=== PATIENT | male | born 1945 | race African-American/Black ===

== ENCOUNTER 2016-11-13 19:04 | Inpatient (IN) | payer OTHER, MEDICARE ==
[~2016-11-13] VITALS: Ht 185.4 cm; Wt 78.0 kg
[2016-11-13 20:18] LABS: Basophils # (auto) 0 uL; Basophils % (auto) 0.2 % (0.0-2.0); CONDITION Y; Eosinophils # (auto) 0.2 uL; Hematocrit 44.8 % (41.0-53.0); Hemoglobin 14.8 g/dL (13.5-17.5); Lymphocytes # (auto) 1.2 uL; Lymphocytes % (auto) 10.5 % (10.0-50.0); Mean Corpuscular Hemoglobin 29.2 pg (28.0-32.0); Mean Corpuscular Volume 88.2 fL (80.0-100.0); Mean Platelet Volume 8.5 fL (7.4-10.4); Monocytes # (auto) 0.8 uL; Monocytes % (auto) 7.2 % (0.0-12.0); Neutrophils # (auto) 9.2 uL; Neutrophils % (auto) 80.1 % (37.0-80.0); Platelet Count (auto) 224 10^3/uL (140-450); Red Cell Distribution Width 15.6 % (11.6-16.0); White Blood Cell 11.4 10^3/uL (4.4-10.8)
[2016-11-13 20:37] LABS: Albumin 3.3 g/dL (3.4-5.0); BUN/Creatinine Ratio 8.3; Bilirubin, Total 0.8 mg/dL (0.2-1.0); Calcium 8.8 mg/dL (8.5-10.1); INR 0.98 (0.9-1.15); Partial Thromboplastin Time 30.3 sec (22.64-33.71); Potassium 3.7 mmol/L (3.5-5.1); Prothrombin Time 10.7 sec (9.37-12.3); Total Protein 8.1 g/dL (6.4-8.2)
[2016-11-13] MEDS ORDERED: ENOXAPARIN SOD 100 MG/1 ML SYRINGE SC ONE (21:45)
[2016-11-13] MEDS ORDERED: VANCOMYCIN 1GM/250ML D5W 250 ML IV ONE (22:30)
[2016-11-13] MEDS ORDERED: VANCOMYCIN PER PHARMACY 0 MG IV SCH (23:00)
[2016-11-13] MEDS: SODIUM CHLORIDE 0.9% 1,000 ML IV SCH (23:22)
[2016-11-14] VITALS (8 sets, daily range): BP systolic 114–145; BP diastolic 53–78
[2016-11-14] MEDS: PIPERACILLIN-TAZOB 3.375GM 100 ML IV SCH ×5 (00:49→23:52)
[2016-11-14] MEDS: TEMAZEPAM 15 MG CAP PO PRN ×2 (01:02→22:30)
[2016-11-14] MEDS ORDERED: AMLO5TAB2 PO (01:54)
[2016-11-14] MEDS ORDERED: CARV12.544 PO (01:54)
[2016-11-14] MEDS ORDERED: CALCTAB62 OR (01:56)
[2016-11-14] MEDS ORDERED: [UNRECOGNIZED DRUG - CODE] PO (01:56)
[2016-11-14] MEDS ORDERED: ASPI81CH4 PO (01:56)
[2016-11-14 06:26] LABS: Basophils # (auto) 0 uL; Basophils % (auto) 0.5 % (0.0-2.0); CONDITION Y; Eosinophils # (auto) 0.2 uL; Eosinophils % (auto) 2.4 % (0.0-7.0); Hematocrit 39.7 % (41.0-53.0); Lymphocytes # (auto) 1.5 uL; Lymphocytes % (auto) 15.7 % (10.0-50.0); Mean Corpuscular Hemoglobin 29.3 pg (28.0-32.0); Mean Corpuscular Hgb Conc. 32.8 g/dL (32.0-36.0); Mean Corpuscular Volume 89.4 fL (80.0-100.0); Monocytes # (auto) 1.2 uL; Monocytes % (auto) 12.3 % (0.0-12.0); Neutrophils # (auto) 6.5 uL; Neutrophils % (auto) 69.1 % (37.0-80.0); Platelet Count (auto) 235 10^3/uL (140-450); Red Cell Distribution Width 15.2 % (11.6-16.0); White Blood Cell 9.5 10^3/uL (4.4-10.8)
[2016-11-14 06:35] LABS: Albumin 2.6 g/dL (3.4-5.0); Calcium 7.4 mg/dL (8.5-10.1); Potassium 3.5 mmol/L (3.5-5.1)
[2016-11-14 06:36] LABS: Bilirubin, Total 0.9 mg/dL (0.2-1.0); Total Protein 6.8 g/dL (6.4-8.2)
[2016-11-14] MEDS: SODIUM CHLORIDE 0.9% 1,000 ML IV SCH ×3 (06:59→22:59)
[2016-11-14] MEDS: CARVEDILOL 12.5 MG TAB PO SCH ×2 (09:08→22:32)
[2016-11-14] MEDS: PANTOPRAZOLE SODIUM 40 MG/10 ML VIAL IV SCH (09:08)
[2016-11-14] MEDS: ENOXAPARIN SOD 80 MG/0.8ML SYRINGE SC SCH ×2 (09:08→22:31)
[2016-11-14] MEDS: methylPREDNISolone SOD SUCC 125 MG/2 ML VL IV SCH ×2 (09:08→22:31)
[2016-11-14] MEDS: amLODIPine BESYLATE 5 MG TAB PO SCH (09:09)
[2016-11-14] MEDS: CHOLECALCIFEROL (VITD3) 1,000 UNIT TAB PO SCH (09:09)
[2016-11-14] MEDS: MORPHINE SULFATE 4 MG/ML SYRG IV PRN (09:10)
[2016-11-14] MEDS: VANCOMYCIN 1GM/250ML D5W 250 ML IV SCH ×2 (10:30→22:32)
[2016-11-14] MEDS: IPRATROPIUM BROM 0.5 MG/2.5ML INH SOL NEB PRN ×2 (12:24→22:58)
[2016-11-14] MEDS: ALBUTEROL SULF 2.5 MG/0.5ML(0.5%) NEB SOLN NEB PRN ×2 (12:25→22:58)
[2016-11-15] VITALS (7 sets, daily range): BP systolic 126–136; BP diastolic 67–75
[2016-11-15] MEDS: PIPERACILLIN-TAZOB 3.375GM 100 ML IV SCH ×4 (05:40→23:41)
[2016-11-15] MEDS: SODIUM CHLORIDE 0.9% 1,000 ML IV SCH ×3 (05:46→23:42)
[2016-11-15] MEDS: IPRATROPIUM BROM 0.5 MG/2.5ML INH SOL NEB PRN ×2 (06:37→10:09)
[2016-11-15] MEDS: ALBUTEROL SULF 2.5 MG/0.5ML(0.5%) NEB SOLN NEB PRN ×2 (06:38→10:09)
[2016-11-15 07:33] LABS: Basophils # (auto) 0 uL; Basophils % (auto) 0.1 % (0.0-2.0); CONDITION Y; Eosinophils # (auto) 0 uL; Eosinophils % (auto) 0.1 % (0.0-7.0); Hematocrit 40.2 % (41.0-53.0); Hemoglobin 13.1 g/dL (13.5-17.5); Lymphocytes # (auto) 0.5 uL; Mean Corpuscular Hemoglobin 29.6 pg (28.0-32.0); Mean Corpuscular Hgb Conc. 32.5 g/dL (32.0-36.0); Mean Corpuscular Volume 91.1 fL (80.0-100.0); Mean Platelet Volume 8.3 fL (7.4-10.4); Monocytes # (auto) 0.1 uL; Monocytes % (auto) 1.7 % (0.0-12.0); Neutrophils % (auto) 92.1 % (37.0-80.0); Platelet Count (auto) 211 10^3/uL (140-450); Red Cell Distribution Width 15.5 % (11.6-16.0); White Blood Cell 8.7 10^3/uL (4.4-10.8)
[2016-11-15] MEDS: VANCOMYCIN 1GM/250ML D5W 250 ML IV SCH ×2 (10:25→22:19)
[2016-11-15] MEDS: methylPREDNISolone SOD SUCC 125 MG/2 ML VL IV SCH ×2 (10:25→21:42)
[2016-11-15] MEDS: PANTOPRAZOLE SODIUM 40 MG/10 ML VIAL IV SCH (10:25)
[2016-11-15] MEDS: ENOXAPARIN SOD 80 MG/0.8ML SYRINGE SC SCH ×2 (10:25→21:42)
[2016-11-15] MEDS: amLODIPine BESYLATE 5 MG TAB PO SCH (10:26)
[2016-11-15] MEDS: CARVEDILOL 12.5 MG TAB PO SCH ×2 (10:26→21:41)
[2016-11-15] MEDS: CHOLECALCIFEROL (VITD3) 1,000 UNIT TAB PO SCH (10:27)
[2016-11-15] MEDS: TEMAZEPAM 15 MG CAP PO PRN (21:40)
[2016-11-16] VITALS (7 sets, daily range): BP systolic 102–161; BP diastolic 58–66
[2016-11-16] MEDS: ALBUTEROL SULF 2.5 MG/0.5ML(0.5%) NEB SOLN NEB PRN ×4 (02:08→14:40)
[2016-11-16] MEDS: IPRATROPIUM BROM 0.5 MG/2.5ML INH SOL NEB PRN ×4 (02:09→14:40)
[2016-11-16] MEDS: SODIUM CHLORIDE 0.9% 1,000 ML IV SCH ×3 (05:16→22:26)
[2016-11-16] MEDS: PIPERACILLIN-TAZOB 3.375GM 100 ML IV SCH ×4 (05:16→23:51)
[2016-11-16 08:13] LABS: Basophils # (auto) 0 uL; Basophils % (auto) 0.2 % (0.0-2.0); CONDITION Y; Eosinophils # (auto) 0 uL; Hematocrit 36.8 % (41.0-53.0); Hemoglobin 12.2 g/dL (13.5-17.5); Lymphocytes # (auto) 0.4 uL; Lymphocytes % (auto) 3.3 % (10.0-50.0); Mean Corpuscular Hemoglobin 29.1 pg (28.0-32.0); Mean Corpuscular Hgb Conc. 33.2 g/dL (32.0-36.0); Mean Corpuscular Volume 87.7 fL (80.0-100.0); Monocytes # (auto) 0.3 uL; Monocytes % (auto) 2.3 % (0.0-12.0); Neutrophils # (auto) 12.2 uL; Neutrophils % (auto) 94.2 % (37.0-80.0); Platelet Count (auto) 274 10^3/uL (140-450); Red Cell Distribution Width 15.1 % (11.6-16.0)
[2016-11-16 08:35] LABS: BUN/Creatinine Ratio 12.8; Calcium 8.2 mg/dL (8.5-10.1); Magnesium 2.7 mg/dL (1.6-2.6); Phosphorus 2.1 mg/dL (2.5-4.90); Potassium 3.9 mmol/L (3.5-5.1)
[2016-11-16] MEDS: PANTOPRAZOLE SODIUM 40 MG/10 ML VIAL IV SCH (10:02)
[2016-11-16] MEDS: VANCOMYCIN 1GM/250ML D5W 250 ML IV SCH ×2 (10:02→22:25)
[2016-11-16] MEDS: methylPREDNISolone SOD SUCC 125 MG/2 ML VL IV SCH ×2 (10:03→22:25)
[2016-11-16] MEDS: ENOXAPARIN SOD 80 MG/0.8ML SYRINGE SC SCH ×2 (10:03→22:26)
[2016-11-16] MEDS: amLODIPine BESYLATE 5 MG TAB PO SCH (10:04)
[2016-11-16] MEDS: CHOLECALCIFEROL (VITD3) 1,000 UNIT TAB PO SCH (10:04)
[2016-11-16] MEDS: CARVEDILOL 12.5 MG TAB PO SCH ×2 (10:04→22:26)
[2016-11-16] MEDS ORDERED: NEUTRA-PHOS TABLET PO ONE (13:00)
[2016-11-16] MEDS: PRO-STAT 64 30ML PO SCH (18:26)
[2016-11-16] MEDS: MULTIPLE VITAMINS W/ MINERALS TAB PO SCH (18:48)
[2016-11-16] MEDS: ASCORBIC ACID 500 MG TAB PO SCH (22:25)
[2016-11-17 05:00] VITALS: BP 130/74
[2016-11-17] MEDS: SODIUM CHLORIDE 0.9% 1,000 ML IV SCH ×3 (05:57→23:15)
[2016-11-17] MEDS: PIPERACILLIN-TAZOB 3.375GM 100 ML IV SCH ×4 (05:57→23:26)
[2016-11-17 08:06] VITALS: BP 131/74
[2016-11-17] MEDS: IPRATROPIUM BROM 0.5 MG/2.5ML INH SOL NEB PRN ×4 (08:51→23:32)
[2016-11-17] MEDS: ALBUTEROL SULF 2.5 MG/0.5ML(0.5%) NEB SOLN NEB PRN ×4 (08:51→23:32)
[2016-11-17] MEDS: VANCOMYCIN 1GM/250ML D5W 250 ML IV SCH ×2 (09:45→21:37)
[2016-11-17] MEDS: PANTOPRAZOLE SODIUM 40 MG/10 ML VIAL IV SCH (09:45)
[2016-11-17] MEDS: ASCORBIC ACID 500 MG TAB PO SCH ×2 (09:47→21:38)
[2016-11-17] MEDS: methylPREDNISolone SOD SUCC 125 MG/2 ML VL IV SCH ×2 (09:47→21:38)
[2016-11-17] MEDS: MULTIPLE VITAMINS W/ MINERALS TAB PO SCH (09:47)
[2016-11-17] MEDS: ENOXAPARIN SOD 80 MG/0.8ML SYRINGE SC SCH ×2 (09:47→21:38)
[2016-11-17] MEDS: CHOLECALCIFEROL (VITD3) 1,000 UNIT TAB PO SCH (09:47)
[2016-11-17] MEDS: amLODIPine BESYLATE 5 MG TAB PO SCH (09:48)
[2016-11-17] MEDS: CARVEDILOL 12.5 MG TAB PO SCH ×2 (09:50→21:38)
[2016-11-17] MEDS: PRO-STAT 64 30ML PO SCH ×2 (09:57→17:25)
[2016-11-17] MEDS ORDERED: LIDOCAINE 1% HCL (LOCAL ANESTH.) INJ 20ML MDV ID ONE (11:15)
[2016-11-17 12:44] VITALS: BP 128/67
[2016-11-17 16:22] VITALS: BP 122/56
[2016-11-17] MEDS ORDERED: NEUTRA-PHOS TABLET PO ONE (17:00)
[2016-11-17] MEDS: SODIUM CHLOR 0.9% PF (SALINE LOCK) 10ML VIAL IV SCH (21:37)
[2016-11-17] MEDS: TEMAZEPAM 15 MG CAP PO PRN (21:48)
[2016-11-17 22:00] VITALS: BP 128/65
[2016-11-18 05:00] VITALS: BP 140/76
[2016-11-18] MEDS: PIPERACILLIN-TAZOB 3.375GM 100 ML IV SCH ×4 (05:20→23:59)
[2016-11-18] MEDS: SODIUM CHLORIDE 0.9% 1,000 ML IV SCH ×2 (05:20→15:09)
[2016-11-18] MEDS: IPRATROPIUM BROM 0.5 MG/2.5ML INH SOL NEB PRN ×3 (07:25→17:18)
[2016-11-18] MEDS: ALBUTEROL SULF 2.5 MG/0.5ML(0.5%) NEB SOLN NEB PRN ×3 (07:25→17:18)
[2016-11-18 09:01] VITALS: BP 121/70
[2016-11-18 09:21] LABS: Basophils # (auto) 0.1 uL; Basophils % (auto) 1.4 % (0.0-2.0); CONDITION Y; Eosinophils # (auto) 0 uL; Hematocrit 39.7 % (41.0-53.0); Hemoglobin 12.9 g/dL (13.5-17.5); Lymphocytes # (auto) 0.5 uL; Lymphocytes % (auto) 5.1 % (10.0-50.0); Mean Corpuscular Hemoglobin 29.1 pg (28.0-32.0); Mean Corpuscular Hgb Conc. 32.6 g/dL (32.0-36.0); Mean Corpuscular Volume 89.3 fL (80.0-100.0); Mean Platelet Volume 8.3 fL (7.4-10.4); Monocytes # (auto) 0.3 uL; Monocytes % (auto) 2.3 % (0.0-12.0); Neutrophils # (auto) 9.8 uL; Neutrophils % (auto) 91.2 % (37.0-80.0); Platelet Count (auto) 322 10^3/uL (140-450); Red Cell Distribution Width 15.4 % (11.6-16.0); White Blood Cell 10.8 10^3/uL (4.4-10.8)
[2016-11-18 09:46] LABS: Potassium 3.8 mmol/L (3.5-5.1)
[2016-11-18 09:48] LABS: BUN/Creatinine Ratio 15.3
[2016-11-18] MEDS: VANCOMYCIN 1GM/250ML D5W 250 ML IV SCH ×2 (10:28→21:57)
[2016-11-18] MEDS: PRO-STAT 64 30ML PO SCH ×2 (10:28→18:00)
[2016-11-18] MEDS: PANTOPRAZOLE SODIUM 40 MG/10 ML VIAL IV SCH (10:29)
[2016-11-18] MEDS: ENOXAPARIN SOD 80 MG/0.8ML SYRINGE SC SCH ×2 (10:29→22:13)
[2016-11-18] MEDS: ASCORBIC ACID 500 MG TAB PO SCH ×2 (10:31→21:58)
[2016-11-18] MEDS: MULTIPLE VITAMINS W/ MINERALS TAB PO SCH (10:31)
[2016-11-18] MEDS: CHOLECALCIFEROL (VITD3) 1,000 UNIT TAB PO SCH (10:31)
[2016-11-18] MEDS: methylPREDNISolone SOD SUCC 125 MG/2 ML VL IV SCH ×2 (10:31→21:58)
[2016-11-18] MEDS: CARVEDILOL 12.5 MG TAB PO SCH ×2 (10:33→22:08)
[2016-11-18] MEDS: amLODIPine BESYLATE 5 MG TAB PO SCH (10:37)
[2016-11-18] MEDS: SODIUM CHLOR 0.9% PF (SALINE LOCK) 10ML VIAL IV SCH ×2 (10:37→21:58)
[2016-11-18 12:30] VITALS: BP 129/72
[2016-11-18 16:45] VITALS: BP 131/79
[2016-11-18] MEDS: TEMAZEPAM 15 MG CAP PO PRN (21:58)
[2016-11-18 22:39] VITALS: BP 130/72
[2016-11-19] VITALS (7 sets, daily range): BP systolic 116–154; BP diastolic 58–80
[2016-11-19] MEDS: MORPHINE SULFATE 4 MG/ML SYRG IV PRN (03:44)
[2016-11-19] MEDS: PIPERACILLIN-TAZOB 3.375GM 100 ML IV SCH ×3 (05:44→19:01)
[2016-11-19] MEDS: SODIUM CHLORIDE 0.9% 1,000 ML IV SCH ×4 (06:59→22:34)
[2016-11-19] MEDS: PRO-STAT 64 30ML PO SCH ×2 (08:00→18:00)
[2016-11-19] MEDS: VANCOMYCIN 1GM/250ML D5W 250 ML IV SCH ×2 (10:15→22:08)
[2016-11-19] MEDS: PANTOPRAZOLE SODIUM 40 MG/10 ML VIAL IV SCH (10:16)
[2016-11-19] MEDS: ASCORBIC ACID 500 MG TAB PO SCH ×2 (10:16→22:09)
[2016-11-19] MEDS: MULTIPLE VITAMINS W/ MINERALS TAB PO SCH (10:16)
[2016-11-19] MEDS: ENOXAPARIN SOD 80 MG/0.8ML SYRINGE SC SCH ×2 (10:16→22:09)
[2016-11-19] MEDS: CHOLECALCIFEROL (VITD3) 1,000 UNIT TAB PO SCH (10:17)
[2016-11-19] MEDS: amLODIPine BESYLATE 5 MG TAB PO SCH (10:17)
[2016-11-19] MEDS: SODIUM CHLOR 0.9% PF (SALINE LOCK) 10ML VIAL IV SCH ×2 (10:18→22:09)
[2016-11-19] MEDS: CARVEDILOL 12.5 MG TAB PO SCH ×2 (10:18→22:09)
[2016-11-19] MEDS: methylPREDNISolone SOD SUCC 125 MG/2 ML VL IV SCH ×2 (10:19→22:09)
[2016-11-19] MEDS: ALBUTEROL SULF 2.5 MG/0.5ML(0.5%) NEB SOLN NEB PRN (11:55)
[2016-11-19] MEDS: IPRATROPIUM BROM 0.5 MG/2.5ML INH SOL NEB PRN (11:55)
[2016-11-19] MEDS: ALBUTEROL SULF 2.5 MG/0.5ML(0.5%) NEB SOLN NEB SCH ×2 (19:27→22:31)
[2016-11-19] MEDS: IPRATROPIUM BROM 0.5 MG/2.5ML INH SOL NEB SCH ×2 (19:28→22:30)
[2016-11-19] MEDS: TEMAZEPAM 15 MG CAP PO PRN (22:10)
[2016-11-20] MEDS: PIPERACILLIN-TAZOB 3.375GM 100 ML IV SCH ×5 (00:23→23:56)
[2016-11-20] MEDS: IPRATROPIUM BROM 0.5 MG/2.5ML INH SOL NEB SCH ×6 (02:25→22:10)
[2016-11-20] MEDS: ALBUTEROL SULF 2.5 MG/0.5ML(0.5%) NEB SOLN NEB SCH ×6 (02:25→22:10)
[2016-11-20 05:00] VITALS: BP 135/80
[2016-11-20] MEDS: SODIUM CHLORIDE 0.9% 1,000 ML IV SCH ×3 (06:44→23:56)
[2016-11-20 07:20] LABS: CONDITION Y; DEFINITIVE SEE PRINTOUT; Hematocrit 40.8 % (41.0-53.0); Hemoglobin 13.1 g/dL (13.5-17.5); Mean Corpuscular Hemoglobin 28.9 pg (28.0-32.0); Mean Corpuscular Hgb Conc. 32.1 g/dL (32.0-36.0); Mean Corpuscular Volume 89.9 fL (80.0-100.0); Mean Platelet Volume 8.3 fL (7.4-10.4); Platelet Count (auto) 359 10^3/uL (140-450); Red Cell Distribution Width 15.3 % (11.6-16.0); SUSPECT SEE PRINTOUT; White Blood Cell 14.8 10^3/uL (4.4-10.8)
[2016-11-20 07:30] VITALS: BP 155/92
[2016-11-20 07:31] LABS: Metamyelocytes % 0; Myelocytes % 0; Promyelocytes % 0; Reactive Lymphocytes 0
[2016-11-20 07:41] LABS: BUN/Creatinine Ratio 23.6; Calcium 8.6 mg/dL (8.5-10.1)
[2016-11-20 08:12] LABS: Platelet Estimate Adequate
[2016-11-20 08:14] LABS: Tear Drop Cells FEW
[2016-11-20 09:00] VITALS: BP 155/92
[2016-11-20] MEDS: VANCOMYCIN 1GM/250ML D5W 250 ML IV SCH ×2 (09:31→21:35)
[2016-11-20] MEDS: PANTOPRAZOLE SODIUM 40 MG/10 ML VIAL IV SCH (09:32)
[2016-11-20] MEDS: methylPREDNISolone SOD SUCC 125 MG/2 ML VL IV SCH ×2 (09:34→21:35)
[2016-11-20] MEDS: MULTIPLE VITAMINS W/ MINERALS TAB PO SCH (09:36)
[2016-11-20] MEDS: CHOLECALCIFEROL (VITD3) 1,000 UNIT TAB PO SCH (09:36)
[2016-11-20] MEDS: amLODIPine BESYLATE 5 MG TAB PO SCH (09:36)
[2016-11-20] MEDS: ASCORBIC ACID 500 MG TAB PO SCH ×2 (09:36→21:35)
[2016-11-20] MEDS: MORPHINE SULFATE 4 MG/ML SYRG IV PRN (09:37)
[2016-11-20] MEDS: CARVEDILOL 12.5 MG TAB PO SCH ×2 (09:37→21:36)
[2016-11-20] MEDS: SODIUM CHLOR 0.9% PF (SALINE LOCK) 10ML VIAL IV SCH ×2 (09:37→22:15)
[2016-11-20] MEDS: PRO-STAT 64 30ML PO SCH ×2 (09:46→18:44)
[2016-11-20] MEDS: ENOXAPARIN SOD 80 MG/0.8ML SYRINGE SC SCH ×2 (09:46→21:36)
[2016-11-20 13:00] VITALS: BP 145/78
[2016-11-20 17:00] VITALS: BP 122/65
[2016-11-20] MEDS: TEMAZEPAM 15 MG CAP PO PRN (21:35)
[2016-11-20 22:00] VITALS: BP 138/88
[2016-11-21] MEDS: IPRATROPIUM BROM 0.5 MG/2.5ML INH SOL NEB SCH ×6 (02:00→22:13)
[2016-11-21] MEDS: ALBUTEROL SULF 2.5 MG/0.5ML(0.5%) NEB SOLN NEB SCH ×6 (02:00→22:13)
[2016-11-21 05:00] VITALS: BP 147/83
[2016-11-21] MEDS: SODIUM CHLORIDE 0.9% 1,000 ML IV SCH ×3 (05:24→22:59)
[2016-11-21] MEDS: PIPERACILLIN-TAZOB 3.375GM 100 ML IV SCH ×2 (05:24→11:35)
[2016-11-21] MEDS: PRO-STAT 64 30ML PO SCH ×2 (05:41→16:46)
[2016-11-21 08:09] VITALS: BP 132/76
[2016-11-21] MEDS: VANCOMYCIN 1GM/250ML D5W 250 ML IV SCH (09:14)
[2016-11-21] MEDS: PANTOPRAZOLE SODIUM 40 MG/10 ML VIAL IV SCH (09:15)
[2016-11-21] MEDS: methylPREDNISolone SOD SUCC 125 MG/2 ML VL IV SCH ×2 (09:15→20:44)
[2016-11-21] MEDS: SODIUM CHLOR 0.9% PF (SALINE LOCK) 10ML VIAL IV SCH ×2 (09:15→20:45)
[2016-11-21] MEDS: MULTIPLE VITAMINS W/ MINERALS TAB PO SCH (09:16)
[2016-11-21] MEDS: CARVEDILOL 12.5 MG TAB PO SCH ×2 (09:16→20:45)
[2016-11-21] MEDS: ENOXAPARIN SOD 80 MG/0.8ML SYRINGE SC SCH ×2 (09:17→20:45)
[2016-11-21] MEDS: ASCORBIC ACID 500 MG TAB PO SCH ×2 (09:17→20:44)
[2016-11-21] MEDS: amLODIPine BESYLATE 5 MG TAB PO SCH (09:17)
[2016-11-21] MEDS: CHOLECALCIFEROL (VITD3) 1,000 UNIT TAB PO SCH (09:17)
[2016-11-21] MEDS: NAFCILLIN SOD IV SCH (12:31)
[2016-11-21] MEDS: SODIUM CHLORIDE 0.9% IV SCH (12:31)
[2016-11-21 12:43] VITALS: BP 138/88
[2016-11-21] MEDS ORDERED: NAFCILLIN SOD 2GM 2 GM in SODIUM CHL 0.9% 100 ML IV SCH (14:00)
[2016-11-21] MEDS: BUDESONIDE (INHALATION) 0.5 MG/2 ML NEB NEB SCH ×2 (14:02→22:14)
[2016-11-21 16:47] VITALS: BP 142/77
[2016-11-21] MEDS: TEMAZEPAM 15 MG CAP PO PRN (20:44)
[2016-11-21 22:19] VITALS: BP 145/93
[2016-11-22] MEDS: ALBUTEROL SULF 2.5 MG/0.5ML(0.5%) NEB SOLN NEB SCH ×6 (02:01→21:38)
[2016-11-22] MEDS: IPRATROPIUM BROM 0.5 MG/2.5ML INH SOL NEB SCH ×4 (02:01→14:00)
[2016-11-22] MEDS: SODIUM CHLORIDE 0.9% 1,000 ML IV SCH ×3 (04:40→22:38)
[2016-11-22 05:09] VITALS: BP 136/76
[2016-11-22 06:23] LABS: Calcium 8.4 mg/dL (8.5-10.1)
[2016-11-22 06:25] LABS: Basophils # (auto) 0 uL; CONDITION Y; Eosinophils # (auto) 0 uL; Hematocrit 41.5 % (41.0-53.0); Hemoglobin 13.5 g/dL (13.5-17.5); Lymphocytes # (auto) 0.4 uL; Lymphocytes % (auto) 3.4 % (10.0-50.0); Mean Corpuscular Hemoglobin 28.9 pg (28.0-32.0); Mean Corpuscular Hgb Conc. 32.5 g/dL (32.0-36.0); Mean Corpuscular Volume 88.9 fL (80.0-100.0); Mean Platelet Volume 8.4 fL (7.4-10.4); Monocytes # (auto) 0.3 uL; Monocytes % (auto) 2.6 % (0.0-12.0); Neutrophils # (auto) 10.4 uL; Platelet Count (auto) 327 10^3/uL (140-450)
[2016-11-22 06:29] LABS: BUN/Creatinine Ratio 27.4
[2016-11-22 06:31] LABS: Potassium 4.1 mmol/L (3.5-5.1)
[2016-11-22] MEDS: BUDESONIDE (INHALATION) 0.5 MG/2 ML NEB NEB SCH ×2 (07:23→21:35)
[2016-11-22] MEDS: PRO-STAT 64 30ML PO SCH ×2 (08:00→15:50)
[2016-11-22 09:00] VITALS: BP 155/78
[2016-11-22] MEDS ORDERED: ceFAZolin 1GM VL ONE (09:10)
[2016-11-22] MEDS ORDERED: ceFAZolin 1GM/50ML D5W 50 ML IV ONE (09:15)
[2016-11-22] MEDS: PANTOPRAZOLE SODIUM 40 MG/10 ML VIAL IV SCH (09:30)
[2016-11-22] MEDS: methylPREDNISolone SOD SUCC 125 MG/2 ML VL IV SCH ×2 (09:31→21:24)
[2016-11-22] MEDS: CARVEDILOL 12.5 MG TAB PO SCH ×2 (09:31→21:24)
[2016-11-22] MEDS: SODIUM CHLOR 0.9% PF (SALINE LOCK) 10ML VIAL IV SCH ×2 (09:31→21:23)
[2016-11-22] MEDS: CHOLECALCIFEROL (VITD3) 1,000 UNIT TAB PO SCH (09:32)
[2016-11-22] MEDS: MULTIPLE VITAMINS W/ MINERALS TAB PO SCH (09:32)
[2016-11-22] MEDS: ENOXAPARIN SOD 80 MG/0.8ML SYRINGE SC SCH ×2 (09:32→21:04)
[2016-11-22] MEDS: amLODIPine BESYLATE 5 MG TAB PO SCH (09:32)
[2016-11-22] MEDS: ASCORBIC ACID 500 MG TAB PO SCH ×2 (09:32→21:24)
[2016-11-22] MEDS ORDERED: MIDAZOLAM HCL 1MG/1ML-2 ML VIAL ONE (09:38)
[2016-11-22] MEDS ORDERED: fentaNYL CITRATE 100 MCG/2 ML VL ONE (09:38)
[2016-11-22] MEDS ORDERED: ALBUTEROL SULF 2.5 MG/0.5ML(0.5%) NEB SOLN ONE ×2 (11:07→16:54)
[2016-11-22] MEDS ORDERED: ALBUTEROL SULF 2.5 MG/0.5ML(0.5%) NEB SOLN NEB ONE ×2 (11:07→17:00)
[2016-11-22] MEDS ORDERED: ONDANSETRON HCL 4 MG/2 ML VIAL IV ONE (11:15)
[2016-11-22] MEDS ORDERED: ePHEDrine SULFATE 50 MG/ML AMP IV PRN (11:15)
[2016-11-22] MEDS ORDERED: MORPHINE SULF INJ 2 MG/ML SYRINGE 1ML IV PRN (11:15)
[2016-11-22] MEDS: hydrALAZINE HCL 20 MG/ML VL IV PRN ×2 (11:17→11:37)
[2016-11-22] MEDS ORDERED: IPRATROPIUM BROM 0.5 MG/2.5ML INH SOL NEB ONE ×2 (11:47→17:00)
[2016-11-22] MEDS ORDERED: BUPIVACAINE 0.75% INJ 30ML MPF VIAL IJ ONE (12:06)
[2016-11-22] MEDS: SODIUM CHLORIDE 0.9% IV SCH (12:48)
[2016-11-22] MEDS: NAFCILLIN SOD IV SCH (12:48)
[2016-11-22 13:00] VITALS: BP 156/79
[2016-11-22] MEDS: MORPHINE SULFATE 4 MG/ML SYRG IV PRN ×2 (13:06→21:26)
[2016-11-22] MEDS: ONDANSETRON HCL 4 MG/2 ML VIAL IV PRN (13:06)
[2016-11-22] MEDS ORDERED: LORazepam 0.5 MG TAB PO PRN (13:30)
[2016-11-22] MEDS ORDERED: LORazepam 2MG/ML-1ML VIAL IV ONE (13:30)
[2016-11-22 16:41] VITALS: BP 160/95
[2016-11-22] MEDS ORDERED: IPRATROPIUM BROM 0.5 MG/2.5ML INH SOL ONE (16:54)
[2016-11-22] MEDS ORDERED: methylPREDNISolone SOD SUCC 125 MG/2 ML VL IV ONE ×2 (17:00→17:15)
[2016-11-22] MEDS ORDERED: BUDESONIDE (INHALATION) 0.5 MG/2 ML NEB NEB ONE (17:45)
[2016-11-22 18:43] LABS: Allen Test Yes; Base Excess 3.5 mmol/L (-2.0-2.0); Blood 02Sat 98.1 % (96-100); Blood MetHb 0.3 % (0.0-1.5); HCO3 29.7 mmol/L (22-26.0); HHb 1.9 % (0.0-5.0); MODE NASAL CANNULA; O2Hb 97.8 % (94.0-97.0); PCO2 51.2 mmHg (35.0-45.0); PCO2(T) 51.2 mmHg (35.0-45.0); PO2 140.7 mmHg (80.0-100.0); PO2(T) 140.7 mmHg (80.0-100.0); Sample Type Arterial; pH 7.382 (7.350-7.450)
[2016-11-22 22:07] VITALS: BP 160/95
[2016-11-22 22:17] VITALS: BP 141/72
[2016-11-23 05:26] VITALS: BP 140/88
[2016-11-23] MEDS: ALBUTEROL SULF 2.5 MG/0.5ML(0.5%) NEB SOLN NEB SCH ×4 (06:02→22:34)
[2016-11-23] MEDS: BUDESONIDE (INHALATION) 0.5 MG/2 ML NEB NEB SCH ×2 (06:03→19:41)
[2016-11-23 06:28] LABS: Basophils # (auto) 0 uL; Basophils % (auto) 0.1 % (0.0-2.0); CONDITION Y; Eosinophils # (auto) 0 uL; Hematocrit 39.2 % (41.0-53.0); Hemoglobin 12.6 g/dL (13.5-17.5); Lymphocytes # (auto) 0.5 uL; Lymphocytes % (auto) 2.6 % (10.0-50.0); Mean Corpuscular Hgb Conc. 32.1 g/dL (32.0-36.0); Mean Corpuscular Volume 90.3 fL (80.0-100.0); Mean Platelet Volume 8.4 fL (7.4-10.4); Monocytes # (auto) 1.3 uL; Monocytes % (auto) 6.5 % (0.0-12.0); Neutrophils # (auto) 17.7 uL; Neutrophils % (auto) 90.8 % (37.0-80.0); Platelet Count (auto) 320 10^3/uL (140-450); Red Cell Distribution Width 16.4 % (11.6-16.0); White Blood Cell 19.4 10^3/uL (4.4-10.8)
[2016-11-23] MEDS: SODIUM CHLORIDE 0.9% 1,000 ML IV SCH (06:36)
[2016-11-23 07:02] LABS: Calcium 8.5 mg/dL (8.5-10.1); Potassium 4.3 mmol/L (3.5-5.1)
[2016-11-23 07:03] LABS: BUN/Creatinine Ratio 23.9
[2016-11-23 08:00] VITALS: BP 129/80
[2016-11-23 09:00] VITALS: BP 129/80
[2016-11-23] MEDS: methylPREDNISolone SOD SUCC 125 MG/2 ML VL IV SCH ×2 (09:38→17:34)
[2016-11-23] MEDS: MULTIPLE VITAMINS W/ MINERALS TAB PO SCH (09:38)
[2016-11-23] MEDS: PANTOPRAZOLE SODIUM 40 MG/10 ML VIAL IV SCH (09:38)
[2016-11-23] MEDS: CHOLECALCIFEROL (VITD3) 1,000 UNIT TAB PO SCH (09:39)
[2016-11-23] MEDS: ASCORBIC ACID 500 MG TAB PO SCH ×2 (09:39→21:57)
[2016-11-23] MEDS: amLODIPine BESYLATE 5 MG TAB PO SCH (09:39)
[2016-11-23] MEDS: CARVEDILOL 12.5 MG TAB PO SCH (09:40)
[2016-11-23] MEDS: PRO-STAT 64 30ML PO SCH ×2 (09:40→18:18)
[2016-11-23] MEDS: SODIUM CHLOR 0.9% PF (SALINE LOCK) 10ML VIAL IV SCH ×2 (09:40→21:57)
[2016-11-23 13:06] VITALS: BP 126/85
[2016-11-23] MEDS ORDERED: TEMAZEPAM 15 MG CAP PO PRN (13:15)
[2016-11-23] MEDS ORDERED: SODIUM CHL 0.9% IV SCH (15:00)
[2016-11-23] MEDS ORDERED: NAFCILLIN IV SCH (15:00)
[2016-11-23] MEDS: SODIUM CHL 0.9% IV SCH (15:16)
[2016-11-23] MEDS: NAFCILLIN IV SCH (15:16)
[2016-11-23 16:12] LABS: INR 1.05 (0.9-1.15); Partial Thromboplastin Time 28.9 sec (22.64-33.71); Prothrombin Time 11.4 sec (9.37-12.3)
[2016-11-23] MEDS ORDERED: WARFARIN SODIUM 5 MG TAB PO ONE (17:00)
[2016-11-23 17:24] VITALS: BP 144/98
[2016-11-23] MEDS: ENOXAPARIN SOD 80 MG/0.8ML SYRINGE SC SCH (21:57)
[2016-11-23] MEDS: METOPROLOL TARTRATE 25 MG TAB PO SCH (21:57)
[2016-11-23 22:00] VITALS: BP 142/73
[2016-11-24] MEDS: ALBUTEROL SULF 2.5 MG/0.5ML(0.5%) NEB SOLN NEB SCH ×5 (02:38→18:25)
[2016-11-24] MEDS: methylPREDNISolone SOD SUCC 125 MG/2 ML VL IV SCH ×3 (02:51→18:58)
[2016-11-24 05:00] VITALS: BP 136/81
[2016-11-24 05:50] LABS: INR 1.16 (0.9-1.15); Partial Thromboplastin Time 34.8 sec (22.64-33.71)
[2016-11-24 05:54] LABS: Prothrombin Time 12.7 sec (9.37-12.3)
[2016-11-24] MEDS: BUDESONIDE (INHALATION) 0.5 MG/2 ML NEB NEB SCH ×2 (07:04→22:30)
[2016-11-24 08:00] VITALS: BP 156/88
[2016-11-24] MEDS: PRO-STAT 64 30ML PO SCH ×2 (08:00→18:00)
[2016-11-24] MEDS: MORPHINE SULFATE 4 MG/ML SYRG IV PRN (08:45)
[2016-11-24 09:00] VITALS: BP 168/88
[2016-11-24] MEDS: amLODIPine BESYLATE 5 MG TAB PO SCH (09:47)
[2016-11-24] MEDS: MULTIPLE VITAMINS W/ MINERALS TAB PO SCH (09:48)
[2016-11-24] MEDS: ASCORBIC ACID 500 MG TAB PO SCH ×2 (09:48→21:18)
[2016-11-24] MEDS: METOPROLOL TARTRATE 25 MG TAB PO SCH ×2 (09:48→21:18)
[2016-11-24] MEDS: CHOLECALCIFEROL (VITD3) 1,000 UNIT TAB PO SCH (09:48)
[2016-11-24] MEDS: SODIUM CHLOR 0.9% PF (SALINE LOCK) 10ML VIAL IV SCH ×2 (09:50→21:17)
[2016-11-24] MEDS: ENOXAPARIN SOD 80 MG/0.8ML SYRINGE SC SCH ×2 (09:55→21:18)
[2016-11-24 13:00] VITALS: BP 156/88
[2016-11-24] MEDS: SODIUM CHL 0.9% IV SCH (16:51)
[2016-11-24] MEDS: NAFCILLIN IV SCH (16:51)
[2016-11-24] MEDS: NEOMYCIN-BACITRACIN-POLYM UNITDOSE PKG TOP OINT TOP SCH (16:51)
[2016-11-24 17:00] VITALS: BP 159/79
[2016-11-24] MEDS ORDERED: WARFARIN SODIUM 2.5 MG TAB PO ONE (17:00)
[2016-11-24] MEDS: IPRATROPIUM BROM 0.5 MG/2.5ML INH SOL NEB SCH (18:25)
[2016-11-24] MEDS: DOXYCYCLINE 100 MG TAB/CAP PO SCH (21:18)
[2016-11-24 21:45] VITALS: BP 141/85
[2016-11-24] MEDS ORDERED: ALBUTEROL SULF 2.5 MG/0.5ML(0.5%) NEB SOLN ONE (22:28)
[2016-11-25] MEDS: methylPREDNISolone SOD SUCC 125 MG/2 ML VL IV SCH ×3 (02:24→17:30)
[2016-11-25 05:13] VITALS: BP 140/100
[2016-11-25] MEDS: MORPHINE SULFATE 4 MG/ML SYRG IV PRN ×2 (05:39→10:22)
[2016-11-25] MEDS: ONDANSETRON HCL 4 MG/2 ML VIAL IV PRN ×2 (05:39→10:21)
[2016-11-25] MEDS: ALBUTEROL SULF 2.5 MG/0.5ML(0.5%) NEB SOLN NEB SCH ×4 (05:53→20:32)
[2016-11-25] MEDS: BUDESONIDE (INHALATION) 0.5 MG/2 ML NEB NEB SCH ×2 (05:53→20:32)
[2016-11-25] MEDS: IPRATROPIUM BROM 0.5 MG/2.5ML INH SOL NEB SCH ×4 (05:53→20:32)
[2016-11-25 06:05] LABS: INR 1.59 (0.9-1.15); Partial Thromboplastin Time 40.2 sec (22.64-33.71); Prothrombin Time 17.4 sec (9.37-12.3)
[2016-11-25 06:23] VITALS: BP 135/89
[2016-11-25] MEDS: PRO-STAT 64 30ML PO SCH ×2 (07:46→20:17)
[2016-11-25 09:00] VITALS: BP 153/88
[2016-11-25] MEDS ORDERED: EPINEPHrine HCL 0.5 ML NEB NEB ONE (10:15)
[2016-11-25] MEDS: ASCORBIC ACID 500 MG TAB PO SCH ×2 (10:17→21:59)
[2016-11-25] MEDS: CHOLECALCIFEROL (VITD3) 1,000 UNIT TAB PO SCH (10:17)
[2016-11-25] MEDS: METOPROLOL TARTRATE 25 MG TAB PO SCH ×2 (10:17→21:58)
[2016-11-25] MEDS: MULTIPLE VITAMINS W/ MINERALS TAB PO SCH (10:17)
[2016-11-25] MEDS: DOXYCYCLINE 100 MG TAB/CAP PO SCH ×2 (10:18→21:58)
[2016-11-25] MEDS: amLODIPine BESYLATE 5 MG TAB PO SCH (10:18)
[2016-11-25] MEDS: ENOXAPARIN SOD 80 MG/0.8ML SYRINGE SC SCH ×2 (10:19→21:59)
[2016-11-25] MEDS: SODIUM CHLOR 0.9% PF (SALINE LOCK) 10ML VIAL IV SCH ×2 (10:21→21:58)
[2016-11-25 13:00] VITALS: BP 146/85
[2016-11-25] MEDS: NAFCILLIN IV SCH (14:22)
[2016-11-25] MEDS: SODIUM CHL 0.9% IV SCH (14:22)
[2016-11-25 17:00] VITALS: BP 143/86
[2016-11-25] MEDS ORDERED: WARFARIN SODIUM 5 MG TAB PO ONE (17:00)
[2016-11-25 21:25] VITALS: BP 153/91
[2016-11-26] MEDS: methylPREDNISolone SOD SUCC 125 MG/2 ML VL IV SCH ×3 (02:19→22:38)
[2016-11-26] MEDS: IPRATROPIUM BROM 0.5 MG/2.5ML INH SOL NEB SCH ×5 (02:30→19:29)
[2016-11-26] MEDS: ALBUTEROL SULF 2.5 MG/0.5ML(0.5%) NEB SOLN NEB SCH ×5 (02:30→19:29)
[2016-11-26 04:56] VITALS: BP 150/96
[2016-11-26] MEDS: MORPHINE SULFATE 4 MG/ML SYRG IV PRN ×3 (06:09→22:00)
[2016-11-26 06:27] LABS: Basophils # (auto) 0 uL; Basophils % (auto) 0.1 % (0.0-2.0); CONDITION Y; Eosinophils # (auto) 0 uL; Eosinophils % (auto) 0.1 % (0.0-7.0); Hematocrit 36.3 % (41.0-53.0); Lymphocytes # (auto) 0.4 uL; Lymphocytes % (auto) 3.3 % (10.0-50.0); Mean Corpuscular Hemoglobin 29.5 pg (28.0-32.0); Mean Corpuscular Hgb Conc. 33.1 g/dL (32.0-36.0); Monocytes # (auto) 0.7 uL; Neutrophils # (auto) 11.9 uL; Neutrophils % (auto) 91.5 % (37.0-80.0); Platelet Count (auto) 228 10^3/uL (140-450); Red Cell Distribution Width 16.3 % (11.6-16.0)
[2016-11-26 06:34] LABS: INR 2.33 (0.9-1.15); Partial Thromboplastin Time 47.1 sec (22.64-33.71)
[2016-11-26 06:38] LABS: BUN/Creatinine Ratio 24.4; Calcium 8.5 mg/dL (8.5-10.1); Potassium 4.1 mmol/L (3.5-5.1)
[2016-11-26 06:40] LABS: Prothrombin Time 25.6 sec (9.37-12.3)
[2016-11-26] MEDS: BUDESONIDE (INHALATION) 0.5 MG/2 ML NEB NEB SCH ×2 (07:31→19:29)
[2016-11-26] MEDS: PRO-STAT 64 30ML PO SCH ×2 (08:00→18:00)
[2016-11-26 08:05] VITALS: BP 142/88
[2016-11-26] MEDS: MULTIPLE VITAMINS W/ MINERALS TAB PO SCH (09:38)
[2016-11-26] MEDS: CHOLECALCIFEROL (VITD3) 1,000 UNIT TAB PO SCH (09:39)
[2016-11-26] MEDS: DOXYCYCLINE 100 MG TAB/CAP PO SCH ×2 (09:39→22:39)
[2016-11-26] MEDS: ASCORBIC ACID 500 MG TAB PO SCH ×2 (09:39→22:39)
[2016-11-26] MEDS: amLODIPine BESYLATE 5 MG TAB PO SCH (09:40)
[2016-11-26] MEDS: METOPROLOL TARTRATE 25 MG TAB PO SCH ×2 (09:40→22:39)
[2016-11-26] MEDS: NEOMYCIN-BACITRACIN-POLYM UNITDOSE PKG TOP OINT TOP SCH (09:41)
[2016-11-26] MEDS: SODIUM CHLOR 0.9% PF (SALINE LOCK) 10ML VIAL IV SCH ×2 (09:44→22:38)
[2016-11-26] MEDS: ENOXAPARIN SOD 80 MG/0.8ML SYRINGE SC SCH (09:49)
[2016-11-26 10:31] VITALS: BP 149/78
[2016-11-26 13:00] VITALS: BP 134/83
[2016-11-26] MEDS: NAFCILLIN IV SCH (15:27)
[2016-11-26] MEDS: SODIUM CHL 0.9% IV SCH (15:27)
[2016-11-26] MEDS ORDERED: ONDANSETRON HCL 4 MG/2 ML VIAL IV PRN (17:00)
[2016-11-26] MEDS ORDERED: WARFARIN SODIUM 1 MG TAB PO ONE (17:00)
[2016-11-26 17:32] VITALS: BP 143/89
[2016-11-26 22:00] VITALS: BP 142/65
[2016-11-27] VITALS (7 sets, daily range): BP systolic 145–156; BP diastolic 74–95
[2016-11-27 06:05] LABS: Basophils # (auto) 0.2 uL; Basophils % (auto) 1.8 % (0.0-2.0); CONDITION Y; Eosinophils # (auto) 0 uL; Hematocrit 36.5 % (41.0-53.0); Hemoglobin 12.1 g/dL (13.5-17.5); Lymphocytes # (auto) 0.7 uL; Lymphocytes % (auto) 5.8 % (10.0-50.0); Mean Corpuscular Hemoglobin 29.6 pg (28.0-32.0); Mean Corpuscular Hgb Conc. 33.1 g/dL (32.0-36.0); Mean Corpuscular Volume 89.6 fL (80.0-100.0); Mean Platelet Volume 8.5 fL (7.4-10.4); Monocytes # (auto) 0.8 uL; Monocytes % (auto) 6.7 % (0.0-12.0); Neutrophils # (auto) 9.7 uL; Neutrophils % (auto) 85.7 % (37.0-80.0); Platelet Count (auto) 259 10^3/uL (140-450); Red Cell Distribution Width 16.3 % (11.6-16.0); White Blood Cell 11.3 10^3/uL (4.4-10.8)
[2016-11-27 06:22] LABS: INR 1.41 (0.9-1.15); Partial Thromboplastin Time 38.7 sec (22.64-33.71); Prothrombin Time 15.4 sec (9.37-12.3)
[2016-11-27] MEDS: IPRATROPIUM BROM 0.5 MG/2.5ML INH SOL NEB SCH ×4 (07:08→19:55)
[2016-11-27] MEDS: ALBUTEROL SULF 2.5 MG/0.5ML(0.5%) NEB SOLN NEB SCH ×4 (07:08→19:55)
[2016-11-27] MEDS: BUDESONIDE (INHALATION) 0.5 MG/2 ML NEB NEB SCH ×2 (07:11→19:55)
[2016-11-27] MEDS: PRO-STAT 64 30ML PO SCH ×2 (08:00→17:27)
[2016-11-27] MEDS: methylPREDNISolone SOD SUCC 125 MG/2 ML VL IV SCH ×2 (10:01→21:39)
[2016-11-27] MEDS: SODIUM CHLOR 0.9% PF (SALINE LOCK) 10ML VIAL IV SCH ×2 (10:01→21:39)
[2016-11-27] MEDS: MULTIPLE VITAMINS W/ MINERALS TAB PO SCH (10:02)
[2016-11-27] MEDS: METOPROLOL TARTRATE 25 MG TAB PO SCH ×2 (10:02→21:40)
[2016-11-27] MEDS: amLODIPine BESYLATE 5 MG TAB PO SCH (10:03)
[2016-11-27] MEDS: CHOLECALCIFEROL (VITD3) 1,000 UNIT TAB PO SCH (10:03)
[2016-11-27] MEDS: DOXYCYCLINE 100 MG TAB/CAP PO SCH ×2 (10:03→21:39)
[2016-11-27] MEDS: ASCORBIC ACID 500 MG TAB PO SCH ×2 (10:03→21:39)
[2016-11-27] MEDS: MORPHINE SULFATE 4 MG/ML SYRG IV PRN (10:04)
[2016-11-27] MEDS: SODIUM CHL 0.9% IV SCH (15:00)
[2016-11-27] MEDS: NAFCILLIN IV SCH (15:00)
[2016-11-27] MEDS ORDERED: WARFARIN SODIUM 2 MG TAB PO ONE (17:00)
[2016-11-28 05:00] VITALS: BP 136/94
[2016-11-28] MEDS: ALBUTEROL SULF 2.5 MG/0.5ML(0.5%) NEB SOLN NEB SCH ×4 (06:50→19:11)
[2016-11-28] MEDS: IPRATROPIUM BROM 0.5 MG/2.5ML INH SOL NEB SCH ×4 (06:50→19:11)
[2016-11-28 07:55] LABS: Basophils # (auto) 0 uL; Basophils % (auto) 0.1 % (0.0-2.0); CONDITION Y; Eosinophils # (auto) 0 uL; Eosinophils % (auto) 0.1 % (0.0-7.0); Hematocrit 37.6 % (41.0-53.0); Hemoglobin 12.2 g/dL (13.5-17.5); Lymphocytes # (auto) 1.4 uL; Lymphocytes % (auto) 12.8 % (10.0-50.0); Mean Corpuscular Hemoglobin 29.4 pg (28.0-32.0); Mean Corpuscular Hgb Conc. 32.4 g/dL (32.0-36.0); Mean Corpuscular Volume 90.7 fL (80.0-100.0); Mean Platelet Volume 8.8 fL (7.4-10.4); Monocytes # (auto) 0.9 uL; Monocytes % (auto) 8.5 % (0.0-12.0); Neutrophils # (auto) 8.7 uL; Neutrophils % (auto) 78.5 % (37.0-80.0); Platelet Count (auto) 257 10^3/uL (140-450); Red Cell Distribution Width 16.8 % (11.6-16.0); White Blood Cell 11.1 10^3/uL (4.4-10.8)
[2016-11-28] MEDS: PRO-STAT 64 30ML PO SCH ×2 (08:00→18:25)
[2016-11-28 08:36] LABS: INR 1.13 (0.9-1.15); Partial Thromboplastin Time 27.3 sec (22.64-33.71); Prothrombin Time 12.3 sec (9.37-12.3)
[2016-11-28 08:56] VITALS: BP 160/81
[2016-11-28] MEDS: SODIUM CHLOR 0.9% PF (SALINE LOCK) 10ML VIAL IV SCH ×2 (10:00→22:07)
[2016-11-28] MEDS: ENOXAPARIN SOD 80 MG/0.8ML SYRINGE SC SCH ×2 (10:00→22:07)
[2016-11-28] MEDS: NEOMYCIN-BACITRACIN-POLYM UNITDOSE PKG TOP OINT TOP SCH (10:00)
[2016-11-28] MEDS: BUDESONIDE (INHALATION) 0.5 MG/2 ML NEB NEB SCH ×2 (10:27→19:12)
[2016-11-28 13:00] VITALS: BP 155/86
[2016-11-28] MEDS: methylPREDNISolone SOD SUCC 125 MG/2 ML VL IV SCH (13:12)
[2016-11-28] MEDS: DOXYCYCLINE 100 MG TAB/CAP PO SCH ×2 (13:13→22:07)
[2016-11-28] MEDS: CHOLECALCIFEROL (VITD3) 1,000 UNIT TAB PO SCH (13:13)
[2016-11-28] MEDS: MULTIPLE VITAMINS W/ MINERALS TAB PO SCH (13:15)
[2016-11-28] MEDS: amLODIPine BESYLATE 5 MG TAB PO SCH (13:15)
[2016-11-28] MEDS: ASCORBIC ACID 500 MG TAB PO SCH ×2 (13:15→22:07)
[2016-11-28] MEDS: METOPROLOL TARTRATE 25 MG TAB PO SCH ×2 (13:16→22:07)
[2016-11-28] MEDS: SODIUM CHL 0.9% IV SCH (15:00)
[2016-11-28] MEDS: NAFCILLIN IV SCH (15:00)
[2016-11-28 17:00] VITALS: BP 149/85
[2016-11-28] MEDS ORDERED: WARFARIN SODIUM 5 MG TAB PO ONE (17:00)
[2016-11-28 22:00] VITALS: BP 152/66
[2016-11-29 05:23] VITALS: BP 123/63
[2016-11-29 06:13] LABS: INR 1.17 (0.9-1.15); Partial Thromboplastin Time 35.7 sec (22.64-33.71); Prothrombin Time 12.8 sec (9.37-12.3)
[2016-11-29] MEDS: PRO-STAT 64 30ML PO SCH (07:41)
[2016-11-29 08:00] VITALS: BP 146/66
[2016-11-29] MEDS: IPRATROPIUM BROM 0.5 MG/2.5ML INH SOL NEB SCH (08:00)
[2016-11-29] MEDS: BUDESONIDE (INHALATION) 0.5 MG/2 ML NEB NEB SCH (08:00)
[2016-11-29] MEDS: ALBUTEROL SULF 2.5 MG/0.5ML(0.5%) NEB SOLN NEB SCH (08:00)
[2016-11-29 09:00] VITALS: BP 115/75
[2016-11-29] MEDS ORDERED: WARPRX PO (09:58)
[2016-11-29] MEDS ORDERED: MET25T PO (09:58)
[2016-11-29] MEDS ORDERED: MULTIPLE VITAMINS W/ MINERALS TAB PO SCH (10:00)
[2016-11-29] MEDS ORDERED: ASCORBIC ACID 500 MG TAB PO SCH (10:00)
[2016-11-29] MEDS ORDERED: predniSONE 20 MG TAB PO SCH (10:00)
[2016-11-29] MEDS: SODIUM CHLOR 0.9% PF (SALINE LOCK) 10ML VIAL IV SCH (10:19)
[2016-11-29] MEDS: amLODIPine BESYLATE 5 MG TAB PO SCH (10:20)
[2016-11-29] MEDS: CHOLECALCIFEROL (VITD3) 1,000 UNIT TAB PO SCH (10:21)
[2016-11-29] MEDS: ENOXAPARIN SOD 80 MG/0.8ML SYRINGE SC SCH (10:22)
[2016-11-29] MEDS: METOPROLOL TARTRATE 25 MG TAB PO SCH (10:22)
[2016-11-29 10:42] VITALS: BP 115/75
[2016-11-29] MEDS ORDERED: WARFARIN SODIUM 5 MG TAB PO ONE (17:00)
[2016-11-29] MEDS ORDERED: PRO-STAT 64 30ML PO SCH (18:00)
== END 2016-11-29 12:05 | disposition home or self-care (01) | DRG 463 ==
LOC: EDBD 19:11 → ER 19:11 → OVERFLOW 19:12 → WEST WING 23:58
PROVIDERS: ADMIT Family Medicine; ATTEND Internal Medicine
PROC: 0HRMXK3 Replacement of Right Foot Skin with Nonautologous Tissue Substitute, Full Thickness, External Approach (ICD-10-PCS; 2016-11-22)
PROC: 0QBN0ZZ Excision of Right Metatarsal, Open Approach (ICD-10-PCS; 2016-11-22)
PROC: 0Y6P0Z0 Detachment at Right 1st Toe, Complete, Open Approach (ICD-10-PCS; principal; 2016-11-22 09:34)
DX: M86.8X7 Other osteomyelitis, ankle and foot (principal); E43 Unspecified severe protein-calorie malnutrition; L03.115 Cellulitis of right lower limb; M00.9 Pyogenic arthritis, unspecified; J44.1 Chronic obstructive pulmonary disease with (acute) exacerbation; J96.10 Chronic respiratory failure, unspecified whether with hypoxia or hypercapnia; I82.401 Acute embolism and thrombosis of unspecified deep veins of right lower extremity; I10 Essential (primary) hypertension; Z83.3 Family history of diabetes mellitus; Z82.49 Family history of ischemic heart disease and other diseases of the circulatory system; E11.621 Type 2 diabetes mellitus with foot ulcer; E11.69 Type 2 diabetes mellitus with other specified complication; Z89.411 Acquired absence of right great toe
CPT/HCPCS: 36415; 36600; 71010; 73630; 73718; 80048; 80053; 80202; 82805; 83735; 84100; 84484; 85007; 85025; 85027; 85610; 85730; 87040; 87070; 87075; 87077; 87186; 87205; 93005; 93923; 93971; 94640; 94644; 96372; 96374; C9113; J0690; J2250; J2405; J2543; J3490